=== PATIENT | female | born 1975 | race African-American/Black ===

== ENCOUNTER → 2017-04-12 13:13 | Outpatient (CLI) | payer BC | END | disposition home or self-care (01) | LOC: AMB 13:13 | DX: Z04.1 Encounter for examination and observation following transport accident (principal) ==

== ENCOUNTER 2017-09-26 19:15 | Emergency (ER) | payer BC ==
[~2017-09-26] VITALS: Ht 165.1 cm; Wt 62.1 kg
[2017-09-26 19:22] VITALS: TEMP 98.4
[2017-09-26 19:47] LABS: PLATELET COUNT 249 K/uL (152-353)
[2017-09-26 19:57] LABS: POTASSIUM 3.6 mmol/L (3.6-5.2); SODIUM 139 mmol/L (136-145)
[2017-09-26 20:39] VITALS: BP 138/95
== END 2017-09-26 20:39 | disposition home or self-care (01) ==
LOC: ED 19:15
DX: R07.89 Other chest pain (principal)
CPT/HCPCS: 80053; 82550; 84484; 85027; 85610; 85730; 93005; 99283

== ENCOUNTER 2018-11-22 18:00 | Outpatient (CLI) | payer OTHER | END 2018-11-22 18:03 | disposition short-term general hospital (02) | LOC: AMB 18:00 | DX: Z04.71 Encounter for examination and observation following alleged adult physical abuse (principal); Y04.2XXA Assault by strike against or bumped into by another person, initial encounter; Y92.63 Factory as the place of occurrence of the external cause | CPT/HCPCS: A0425; A0429 ==

== ENCOUNTER 2018-11-22 18:05 | Emergency (ER) | payer OTHER ==
[~2018-11-22] VITALS: Ht 165.1 cm; Wt 65.8 kg
[2018-11-22 19:23] LABS: PLATELET COUNT 286 K/uL (152-353)
[2018-11-22 19:31] LABS: POTASSIUM 3.7 mmol/L (3.6-5.2)
[2018-11-22 22:30] VITALS: BP 150/98; TEMP 98.2
== END 2018-11-22 22:30 | disposition home or self-care (01) ==
LOC: ED 18:05
PROVIDERS: Family Medicine
DX: S00.93XA Contusion of unspecified part of head, initial encounter (principal); S10.93XA Contusion of unspecified part of neck, initial encounter; S20.222A Contusion of left back wall of thorax, initial encounter; S20.221A Contusion of right back wall of thorax, initial encounter; S20.212A Contusion of left front wall of thorax, initial encounter; S20.211A Contusion of right front wall of thorax, initial encounter; J32.9 Chronic sinusitis, unspecified; Y04.2XXA Assault by strike against or bumped into by another person, initial encounter
CPT/HCPCS: 36415; 80053; 81000; 85027; 96372; 99284; J1885